=== PATIENT | female | born 1960 | race Hispanic/Latino ===

== ENCOUNTER 2024-12-07 20:32 | Emergency (ER) | payer BC ==
[~2024-12-07] VITALS: Ht 154.9 cm; Wt 75.7 kg
--- NOTE | 2024-12-07 21:15 | ERN ---
ED Note History of Present Illness Stated Complaint: SWOLLEN AND NUMBNESS IN CHEEK AND FACE Chief Complaint: Cellulitis Time Seen by MD: 20:24 Dictation: This is a 64-year-old female who presented to the emergency room with complaints of left-sided cheek swelling and jaw pain. She also reported tingling that has been going on for the past week or so apparently she saw her PCP who suspected that possible tooth infection could be causing these symptoms and it was given antibiotics however the patient stated that she has severe jaw pain and hence she came into the ER for further evaluation. She denied any fever chills or rigors. She gives a history of tooth being broken in the past in the same area. No difficulty opening the mouth or swallowing. No change in voice. No shortness of breath. She reports pain in the left lower jaw and teeth with radiation to the left ear and down the neck. Temperature 98 pulse 97 respirations 19 blood pressure 169/94 pulse oximetry 98% on room air Chronic medical problems include diabetes mellitus, hypertension, hyperlipidemia, kidney cancer in remission for the past 7 years Allergies: Coded Allergies: No Known Allergies (Unverified Allergy, Unknown, 12/07/24) Home Meds Active Scripts Acetaminophen with Codeine (Acetaminophen-Cod #3 Tablet) 300 Mg-30 Mg Tablet, 1 TAB PO TIDP PRN for pain for 5 Days, #15 TAB 0 Refills Prov:MICHAEL REEVES MD 12/07/24 Amoxicillin/Potassium Clav (Amox Tr-K Clv 875-125 mg Tab) 875 Mg-125 Mg Tablet, 1 TAB PO BID for 10 Days, #20 TAB 0 Refills Prov:MICHAEL REEVES MD 12/07/24 Past Medical History Past Medical History: Diabetes-Type II, High Cholesterol, Hypertension Surgical History: None Family History: Negative Social History: Negative History: Not Applicable RN Note Reviewed/Agreed w/PFSH: Yes Review of System Dictation Constitutional: Negative for fever,chills, and weight loss Eyes: Negative for injury, pain,redness, and discharge ENT: Positive for pain or swelling left facial swelling mostly in the lower jaw area she also reported some tingling of the lips. Cardiovascular: Negative for chest pain, palpitations, and edema Respiratory: Negative for shortness of breath, cough, and wheezing, Abdomen/GI: Negative for abdominal pain, nausea, vomiting, diarrhea, and constipation Back: Negative for injury and pain : Negative for injury, bleeding and discharge MS/Extremity: Negative for injury and deformity Skin: Negative for rash, and discoloration Neuro: Negative for headache, weakness, numbness, tingling, and seizure Psych: Negative for suicide ideation, homicidal ideation, and hallucinations Initial Vital Sign VS Vital Signs Date Time Temp Pulse Resp B/P (MAP) Pulse Ox O2 Delivery O2 Flow Rate FiO2 12/07/24 20:46 98.2 97 19 169/94 98 Room Air Physical Exam Dictation General: awake, alert, NAD Head/Face: Normocephalic, atraumatic Eyes: PERRL, EOMI, vision at baseline ENT: oral cavity clear, TMs clear, no signs of infection no trismus noted. Nonspecific swelling in the left jaw and left submandibular area. There is minimal swelling of the left lower cheek area there is no fluctuance or induration. Left lower jaw had missing teeth and the premolar is broken with a large cavity no obvious pus or any drainage on finger palpation of the gums. Neck: Trachea midline, supple, no nuchal rigidity Cardiovascular: RRR, normal S1/S2, No MRGs, no JVD Respiratory: CTAB, no respiratory distress, No rales or wheezes Abdomen: Soft, non-tender, non-distended, normal bowel sounds, no guarding or rebound. Skin: Warm, dry, normal turgor, no rash MS/Extremity: Pulses equal, no cyanosis, neurovascular intact, FROM Neuro: COAx4, GCS 15, strength 5/5, CN 2-12 intact, normal cerebellar exam, normal gait, Psych: Normal behavior, mood, and affect normal Extremities-trace edema without any palpable cords, Homans sign is negative Results (Laboratory/Radiology) Laboratory/Radiology Laboratory Tests Test 12/07/24 21:26 White Blood Count 10.9 K/uL (4.8-10.8) H Red Blood Count 5.08 MIL/uL (4.00-5.50) Hemoglobin 14.4 g/dL (12.0-16.0) Hematocrit 43.1 % (36-48) Mean Corpuscular Volume 84.8 fL (79-99) Mean Corpuscular Hemoglobin 28.3 pg (27.0-33.0) Mean Corpuscular Hemoglobin Concent 33.4 g/dL (32.0-36.0) Red Cell Distribution Width 13.4 % (11.0-15.5) Platelet Count 326 K/uL (130-400) Mean Platelet Volume 9.8 fL (7.5-10.5) Immature Granulocyte % (Auto) 0.4 % (0-1) Neutrophils (%) (Auto) 64.9 % (40.0-77.0) Lymphocytes (%) (Auto) 25.9 % (21.0-51.0) Monocytes (%) (Auto) 6.8 % (3.0-13.0) Eosinophils (%) (Auto) 1.6 % (0.0-8.0) Basophils (%) (Auto) 0.4 % (0.0-5.0) Neutrophils # (Auto) 7.1 K/uL (1.8-7.7) Lymphocytes # (Auto) 2.8 K/uL (1.0-4.8) Monocytes # (Auto) 0.7 K/uL (0.1-1.0) Eosinophils # (Auto) 0.17 K/uL (0.00-0.70) Basophils # (Auto) 0.04 K/uL (0.00-0.20) Absolute Immature Granulocyte (auto 0.04 K/uL (0-1) Nucleated Red Blood Cells 0.0 % (0.0-0.19) Sodium Level 139 mmol/L (136-145) Potassium Level 3.1 mmol/L (3.5-5.1) L Chloride Level 103 mmol/L (101-111) Carbon Dioxide Level 28 mmol/L (21-32) Blood Urea Nitrogen 15 mg/dL (7-18) Creatinine 0.8 mg/dL (0.5-1.0) Glomerular Filtration Rate Calc 83 mL/min (>90) Random Glucose 251 mg/dL (70-105) H Total Calcium 9.1 mg/dL (8.5-10.1) Labs Reviewed?: Yes CT Scan Comment: REASON: Left facial cellulitis and severe pain and swelling of the jaw and submand ORDERING PHYSICIAN: MICHAEL REEVES MD PROCEDURE: MAXFACI WO - CT MAXILLOFACIAL W/O CONTRAST CT MAXILLOFACIAL W/O CONTRAST HISTORY: Left facial cellulitis and severe pain and swelling of the jaw and submand TECHNIQUE: Noncontrast CT maxillofacial was performed. Sagittal and coronal reformats were performed. CT was performed with one or more of the following dose reduction techniques: Automated exposure control, adjustment of the mA and/or kV according to the patient's size, or use of the iterative reconstruction technique. FINDINGS: Left facial soft tissue swelling is seen. Evaluation of the oral cavity is degraded due to streak artifact from dental work. No soft tissue gas or drainable fluid collection is identified. Carious left mandibular premolar with periapical abscess, probably source of infection. Visualized paranasal sinuses are normally aerated. Mastoid air cells are clear. Study is not adequate to evaluate brain parenchyma/dura. IMPRESSION: 1. Left facial soft tissue swelling is seen. Evaluation of the oral cavity is degraded due to streak artifact from dental work. No soft tissue gas or drainable fluid collection is identified. 2. Carious left mandibular premolar tooth with periapical abscess, probably source of infection. DICTATED BY: PAT LARIOS MD DATE: 12/07/242207 ELECTRONICALLY SIGNED BY: PAT LARIOS MD DATE: 12/07/242212 ED Course ED Course Orders Procedure Category Date Status Time Cbc With Differential LAB 12/07/24 Complete 21:11 Basic Metabolic Panel LAB 12/07/24 Complete 21:11 Ketorolac PHA 12/07/24 Complete Tromethamine 30mg/Ml 21:30 0.9%Nacl 1000ml (Ns PHA 12/07/24 In Process 1000ml) 21:30 Ct Maxillofacial W/O CT 12/07/24 Resulted Contrast 21:23 Potassium Bicarb/Cit PHA 12/07/24 Complete Ac 25meq (K-Lyte Ta 22:30 Current Medications Medications (Trade) Dose Ordered Sig/Kirstin Route PRN Reason Start Time Stop Time Status Last Admin Dose Admin Ketorolac Tromethamine (toRADol) 30 mg ONCE ONCE IVP 12/07/24 21:30 12/07/24 21:31 DC 12/07/24 21:40 Potassium Bicarbonate (K-Lyte Tablet Eff 25 Meq Tablet.eff) 50 meq ONCE ONCE PO 12/07/24 22:30 12/07/24 22:31 DC 12/07/24 22:42 Sodium Chloride 1,000 ml @ 125 mls/hr ONCE ONCE IV 12/07/24 21:30 12/08/24 05:29 12/07/24 21:40 Vital Signs Date Time Temp Pulse Resp B/P (MAP) Pulse Ox O2 Delivery O2 Flow Rate FiO2 12/07/24 20:46 98.2 97 19 169/94 98 Room Air We will perform diagnostic labs, advanced imaging and administer medications according to the patient's complaint. Once the results are available, will review and personally interpreted the labs to rule out any acute life- threatening emergency the trach require immediate intervention and treatment. I will then re-evaluate the patient after treatment and diagnostic exams have return to determine whether the patient requires any further testing, can safely be discharged home or need further admission to hospital for additional treatment and evaluation. CBC showed a white count of 10.9. BNP 7 showed a potassium of 3.1 and sugar was 251 I updated the patient and her on the labs and CT scan of the maxillofacial section and explained the findings. I have educated them that there is no evidence of any drainable fluid or abscess other than swelling of the left facial area and periapical abscess of the premolar tooth in the left lower jaw. Extensive counseling on opioid use, abuse and adverse effects of the medication, risks and benefits. Patient and spouse verbalized full understanding and she is instructed not to drive as the opioid could make her drowsy. She was instructed to hold off on any other antibiotics while she is on Augmentin prescribed in the emergency room here I have answered all their questions and she should follow up with her PCP and oral surgeon Medical Decision Making MDM MDM: Differential diagnosis: Periodontitis, periapical abscess, dental caries, cellulitis or abscess of the left facial area, submandibular gland infection Rationale: Tests considered and ordered secondary to shared decision making include: Previous outside records reviewed: Old ER visits. Risk of complication and/or morbidity or mortality of patient management: None Medications-Per medication reconciliation Need for hospitalization: Patient does not meet criteria for hospitalization. Need for emergency major/minor surgery: No There are no social concerns with this patient. Prescription drug management Prescriptions will include symptomatic care Patient's prior external medical records from other ER visits were reviewed by me as indicated. Prior testing and results from previous visits were reviewed. Prior tests were taken into account with medical decision making and resource utilization, independent historian/historians were used to obtain complete medical history. I independently interpreted the test that were performed, results were reviewed by me and considered findings on radiology if ordered. Medical management and examination interpretation discussions were had by me with other qualified healthcare professionals as indicated for the patient's care. Problem List Problem List: (1) Periapical abscess with facial involvement (2) Facial cellulitis (3) Dental caries DX & DISP Disposition: Discharge Departure Impression: Primary Impression: Periapical abscess with facial involvement Additional Impressions: Facial cellulitis, Dental caries Condition: Stable Scripts Acetaminophen with Codeine (Acetaminophen-Cod #3 Tablet) 300 Mg-30 Mg Tablet 1 TAB PO TIDP PRN for pain for 5 Days, #15 TAB 0 Refills Prov: MICHAEL REEVES MD 12/07/24 Amoxicillin/Potassium Clav (Amox Tr-K Clv 875-125 mg Tab) 875 Mg-125 Mg Tablet 1 TAB PO BID for 10 Days, #20 TAB 0 Refills Prov: MICHAEL REEVES MD 12/07/24 Additional Instructions: Patient and the caregiver have been informed of all the diagnostic tests and the imaging conducted during the today's visit to the emergency room and has verbalized understanding of the results I have personally reviewed and interpreted all diagnostic exams performed here in the ER today as well as the vital signs documented by the nursing staff. The patient is now being discharged to home and should follow up with the primary care physician or the specialist as directed by the ER staff. Follow-up with primary care provider in 1 to 2 days. Take medications as directed here in the emergency room. Okay to continue home medications unless otherwise discussed during your visit in the emergency room today. Return to your nearest emergency room if symptoms worsen or if there is no improvement. Call 911 if you need immediate assistance. Take Tylenol or Motrin [id number] as needed and if no contraindications are present. Increase oral hydration. A wound culture or urine culture was ordered here in the emergency room department please follow-up with primary care provider and advise them to get repeat ports from our facility. If you had any Daniel wrap/splints that were applied here, please do not remove them until you see your primary care or specialty. Patient must follow up with her PCP and oral surgeon for further management MICHAEL REEVES MD December 07, 2024 21:15
[2024-12-07] MEDS: ketOROlac 30MG VIAL (30MG/ML) IVP ONE (21:40)
[2024-12-07] MEDS: 0.9%NACL 1000ML 1,000 ML IV ONE (21:40)
[2024-12-07 21:46] LABS: BASOPHILS # (AUTO) 0.04 K/uL (0.00-0.20); BASOPHILS % (AUTO) 0.4 % (0.0-5.0); EOSINOPHILS # (AUTO) 0.17 K/uL (0.00-0.70); EOSINOPHILS % (AUTO) 1.6 % (0.0-8.0); HEMATOCRIT 43.1 % (36-48); IMMATURE GRANULOCYTE ABSOLUTE 0.04 K/uL (0-1); LYMPHOCYTES # (AUTO) 2.8 K/uL (1.0-4.8); LYMPHOCYTES % (AUTO) 25.9 % (21.0-51.0); MEAN CORPUSCULAR HEMOGLOBIN 28.3 pg (27.0-33.0); MEAN CORPUSCULAR HGB CONC 33.4 g/dL (32.0-36.0); MEAN CORPUSCULAR VOLUME 84.8 fL (79-99); MONOCYTES # (AUTO) 0.7 K/uL (0.1-1.0); MONOCYTES % (AUTO) 6.8 % (3.0-13.0); NEUTROPHILS # (AUTO) 7.1 K/uL (1.8-7.7); NEUTROPHILS % (AUTO) 64.9 % (40.0-77.0); PLATELET COUNT (AUTO) 326 K/uL (130-400); RED BLOOD CELL COUNT(AUTO) 5.08 MIL/uL (4.00-5.50); RED CELL DISTRIBUTION WIDTH 13.4 % (11.0-15.5); WHITE BLOOD COUNT (AUTO) 10.9 K/uL (4.8-10.8)
[2024-12-07 21:57] LABS: CREATININE 0.8 mg/dL (0.5-1.0); POTASSIUM 3.1 mmol/L (3.5-5.1)
--- NOTE | 2024-12-07 22:12 | HMCIMG ---
CT MAXILLOFACIAL W/O CONTRAST HISTORY: Left facial cellulitis and severe pain and swelling of the jaw and submand TECHNIQUE: Noncontrast CT maxillofacial was performed. Sagittal and coronal reformats were performed. CT was performed with one or more of the following dose reduction techniques: Automated exposure control, adjustment of the mA and/or kV according to the patient's size, or use of the iterative reconstruction technique. FINDINGS: Left facial soft tissue swelling is seen. Evaluation of the oral cavity is degraded due to streak artifact from dental work. No soft tissue gas or drainable fluid collection is identified. Carious left mandibular premolar with periapical abscess, probably source of infection. Visualized paranasal sinuses are normally aerated. Mastoid air cells are clear. Study is not adequate to evaluate brain parenchyma/dura. IMPRESSION: 1. Left facial soft tissue swelling is seen. Evaluation of the oral cavity is degraded due to streak artifact from dental work. No soft tissue gas or drainable fluid collection is identified. 2. Carious left mandibular premolar tooth with periapical abscess, probably source of infection.
[2024-12-07] MEDS: PoTASSium BIcarbonate/CIT AC 25 MEQ TABLET.EFF PO ONE (22:42)
[2024-12-07] MEDS ORDERED: ACET-2079 PO (22:52)
[2024-12-07] MEDS ORDERED: AMOX1TAB16 PO (22:52)
[2024-12-07] MEDS: acetaMINOPHEN WITH coDEINE 1 TAB TAB PO ONE (23:58)
[2024-12-08 00:41] VITALS: BP 128/67; PULSE 80; RESP 20; TEMP 98.3
== END 2024-12-08 00:15 | disposition home or self-care (01) ==
LOC: EDH 20:32
DX: K04.7 Periapical abscess without sinus (principal); L03.211 Cellulitis of face; I10 Essential (primary) hypertension; E78.00 Pure hypercholesterolemia, unspecified; E11.9 Type 2 diabetes mellitus without complications
CPT/HCPCS: 99284; 96374; 70486; 96361; 80048; 85025; 36415; J1885; J7030

== ENCOUNTER 2025-05-30 19:22 | Emergency (ER) | payer BC ==
[~2025-05-30] VITALS: Ht 154.9 cm; Wt 79.4 kg
[~2025-05-30 19:22] MED LIST: ACET-2079 PO; AMOX1TAB16 PO
--- NOTE | 2025-05-30 19:27 | NUR ---
UA CUP PROVIDED
--- NOTE | 2025-05-30 19:29 | ERN ---
ED Note History of Present Illness Stated Complaint: CP, ABD PAIN Chief Complaint: Multiple Complaints Time Seen by MD: 19:23 Time Seen by Midlevel: 19:25 Dictation: 65 old female with a history of hypertension, diabetes, cholesterol coming in with complaints of chest pain and diarrhea. Patient states she had some potatoes with a he does an hour later she began with chest pain and then the diarrhea. Patient states there is no melena or bloody stools. Patient states she feels pressure in her chest. Denies any shortness a breath, nausea, vomiting, back pain or jaw pain. Allergies: Coded Allergies: No Known Allergies (Unverified Allergy, Unknown, 12/07/24) Home Meds Active Scripts Acetaminophen with Codeine (Acetaminophen-Cod #3 Tablet) 300 Mg-30 Mg Tablet, 1 TAB PO TIDP PRN for pain for 5 Days, #15 TAB 0 Refills Prov:MICHAEL REEVES MD 12/07/24 Amoxicillin/Potassium Clav (Amox Tr-K Clv 875-125 mg Tab) 875 Mg-125 Mg Tablet, 1 TAB PO BID for 10 Days, #20 TAB 0 Refills Prov:MICHAEL REEVES MD 12/07/24 Past Medical History Past Medical History: Diabetes-Type II, High Cholesterol, Hypertension Surgical History: None Family History: Negative Social History: Negative History: Not Applicable Review of System Dictation Constitutional: Negative for fever,chills, and weight loss Eyes: Negative for injury, pain,redness, and discharge ENT: Negative for injury,pain or swelling Cardiovascular:Chest pain Respiratory: Negative for shortness of breath, cough, and wheezing, Abdomen/GI: Diarrhea Back: Negative for injury and pain : Negative for injury, bleeding and discharge MS/Extremity: Negative for injury and deformity Skin: Negative for rash, and discoloration Neuro: Negative for headache, weakness, numbness, tingling, and seizure Psych: Negative for suicide ideation, homicidal ideation, and hallucinations Review of Systems: was completed Initial Vital Sign VS Vital Signs Date Time Temp Pulse Resp B/P (MAP) Pulse Ox O2 Delivery O2 Flow Rate FiO2 05/30/25 19:23 98.1 79 18 138/78 99 Room Air Physical Exam Dictation General: awake, alert, NAD Head/Face: Normocephalic, atraumatic Eyes: PERRL, EOMI, vision at baseline ENT: oral cavity clear, TMs clear, no signs of infection Neck: Trachea midline, supple, no nuchal rigidity Cardiovascular: RRR, normal S1/S2, No MRGs, no JVD, chest pain is reproducible upon palpation to the center sternum Respiratory: CTAB, no respiratory distress, No rales or wheezes Abdomen: Soft, non-tender, non-distended, normal bowel sounds, no guarding or rebound. Skin: Warm, dry, normal turgor, no rash MS/Extremity: Pulses equal, no cyanosis, neurovascular intact, FROM Neuro: COAx4, GCS 15, strength 5/5, CN 2-12 intact, normal cerebellar exam, normal gait, Psych: Normal behavior, mood, and affect normal Results (Laboratory/Radiology) Laboratory/Radiology Laboratory Tests Test 05/30/25 19:38 05/30/25 19:47 Urine Color LIGHT-YELLOW (YELLOW) Urine Appearance CLEAR (CLEAR) Urine pH 5.0 (5.0-8.0) Urine Specific [place] 1.037 (1.001-1.031) Urine Protein NEGATIVE mg/dL (NEGATIVE) Urine Glucose (UA) >=1000 mg/dL (NEGATIVE) H Urine Ketones 40 mg/dL (NEGATIVE) H Urine Occult Blood NEGATIVE (NEGATIVE) Urine Nitrate NEGATIVE (NEGATIVE) Urine Bilirubin NEGATIVE mg/dL (NEGATIVE) Urine Urobilinogen 0.2 mg/dL (0.2-1.0) Urine Leukocyte Esterase 250 Bean/uL (NEGATIVE) H Urine RBC 0-1 /HPF (0-1) Urine WBC 26-50 /HPF (0-1) H Urine Squamous Epithelial Cells FEW /HPF (0-2) Urine Bacteria FEW /HPF (None Seen) White Blood Count 21.7 K/uL (4.8-10.8) H Red Blood Count 5.26 MIL/uL (4.00-5.50) Hemoglobin 15.0 g/dL (12.0-16.0) Hematocrit 45.4 % (36-48) Mean Corpuscular Volume 86.3 fL (79-99) Mean Corpuscular Hemoglobin 28.5 pg (27.0-33.0) Mean Corpuscular Hemoglobin Concent 33.0 g/dL (32.0-36.0) Red Cell Distribution Width 13.2 % (11.0-15.5) Platelet Count 313 K/uL (130-400) Mean Platelet Volume 10.0 fL (7.5-10.5) Immature Granulocyte % (Auto) 0.5 % (0-1) Neutrophils (%) (Auto) 85.7 % (40.0-77.0) H Lymphocytes (%) (Auto) 9.2 % (21.0-51.0) L Monocytes (%) (Auto) 4.0 % (3.0-13.0) Eosinophils (%) (Auto) 0.3 % (0.0-8.0) Basophils (%) (Auto) 0.3 % (0.0-5.0) Neutrophils # (Auto) 18.6 K/uL (1.8-7.7) H Lymphocytes # (Auto) 2.0 K/uL (1.0-4.8) Monocytes # (Auto) 0.9 K/uL (0.1-1.0) Eosinophils # (Auto) 0.06 K/uL (0.00-0.70) Basophils # (Auto) 0.06 K/uL (0.00-0.20) Absolute Immature Granulocyte (auto 0.10 K/uL (0-1) Segmented Neutrophils % 66 % (40-70) Band Neutrophils % 18 % (0-2) H Lymphocytes % (Manual) 15 % (22-44) L Monocytes % (Manual) 1 % (2-9) L Nucleated Red Blood Cells 0.0 % (0.0-0.19) Differential Comment MANUAL DIFFERENTIAL White Cell Morphology Comment CONSISTENT W/DIFF Platelet Morphology Comment ADEQUATE Red Blood Cell Morphology NORMAL Sodium Level 141 mmol/L (136-145) Potassium Level 3.7 mmol/L (3.5-5.1) Chloride Level 103 mmol/L (101-111) Carbon Dioxide Level 27 mmol/L (21-32) Blood Urea Nitrogen 19 mg/dL (7-18) H Creatinine 0.7 mg/dL (0.5-1.0) Glomerular Filtration Rate Calc 97 mL/min (>90) Random Glucose 187 mg/dL (70-105) H Total Calcium 9.1 mg/dL (8.5-10.1) Total Creatine Kinase 137 U/L (21-232) Troponin I High Sensitivity 32 ng/L (4-50) Lipase 31 U/L (16-77) Labs Reviewed?: Yes X-RAY Comment: [facility] [address] [place] [id number] IMAGING REPORT Signed PATIENT: RAJI KING MR#: [id number] : 1960 SEX: F AGE: 65 LOCATION: [facility] ORDER 26 STATUS: REG ER REPORT#: [id number] SERVICE 25 REASON: CHEST PAIN ORDERING PHYSICIAN: MANUEL WATERS MD PROCEDURE: CXR1VW - CHEST 1VW EXAM: CR Chest, 1 view CLINICAL HISTORY: Chest pain. COMPARISON: None provided. FINDINGS: The lungs show no infiltrates or other acute findings. No pleural effusion or pneumothorax. The cardiomediastinal silhouette is within normal limits. No acute osseous abnormality. IMPRESSION: No acute cardiopulmonary process is evident. /[place] DICTATED BY: MULU CARVAJAL Jr., MD DATE: 05/30/252147 ELECTRONICALLY SIGNED BY: MULU CARVAJAL Jr., MD DATE: 05/30/252147 CT Scan Comment: [facility] [address] [place] [id number] IMAGING REPORT Signed PATIENT: RAJI KING MR#: [id number] : 1960 SEX: F AGE: 65 LOCATION: [facility] ORDER 07 STATUS: REG ER REPORT#: [id number] SERVICE 06 REASON: abdominal lock, vomiting, diarrhea, leukocytois ORDERING PHYSICIAN: VENU BENAVIDES CNP PROCEDURE: ABD PEL W - CT ABDOMEN/PELVIS W/CONTRAST EXAM: CT Abdomen and Pelvis with IV contrast CLINICAL HISTORY: Abdominal pain, vomiting, diarrhea, leukocytosis TECHNIQUE: Axial computed tomography images of the abdomen and pelvis with intravenous contrast. COMPARISON: None provided. FINDINGS: LUNG BASES: The lung bases appear clear. No pleural effusions are seen. LIVER: Enlarged in size, measuring 17.5 cm. GALLBLADDER AND BILE DUCTS: Post cholecystectomy status. No biliary ductal dilatation is evident. PANCREAS: Unremarkable. SPLEEN: Unremarkable. ADRENAL GLANDS: Unremarkable. KIDNEYS, URETERS, AND BLADDER: Cortical cyst in the interpolar region of the left kidney measuring 1.6 x 1.6 cm. There is no hydronephrosis or hydroureter. No urinary calculi are seen. STOMACH AND BOWEL: Nondilated fluid-filled small and large bowel loops without any zone of transition; this could be a nonspecific finding, or may be present in the clinical setting of acute enterocolitis. Uncomplicated colonic diverticula. No bowel obstruction. APPENDIX: Appendix appears prominent, measuring 8 mm in caliber with no evidence of significant periappendiceal fat stranding. PERITONEUM: No free fluid. No free air. LYMPH NODES: No lymphadenopathy is evident. REPRODUCTIVE: Status post hysterectomy. VASCULATURE: No evidence of abdominal aortic aneurysm. BONES: No aggressive appearing osseous lesion. No acute osseous pathology evident. Surgical nerissa in the left perinephric region. Consistent with postoperative status. Suggested clinical correlation. IMPRESSION: Nondilated fluid-filled small and large bowel loops without any zone of transition; this could be a nonspecific finding, or may be present in the clinical setting of acute enterocolitis. Uncomplicated colonic diverticula. No bowel obstruction. Prominent appendix with no evidence of significant periappendiceal fat stranding or inflammation at this time, recommend close observation. Left renal cortical cyst. Bosniak category I. /[place] DICTATED BY: MULU CARVAJAL Jr., MD DATE: 05/30/252235 ELECTRONICALLY SIGNED BY: MULU CARVAJAL Jr., MD DATE: 05/30/252235 ED Course ED Course Orders Procedure Category Date Status Time Vital Signs Per CPOE 05/30/25 Transmitted Routine 19:26 Chest 1vw RAD 05/30/25 Resulted 19:26 12 Lead Ekg Tracing- EKG 05/30/25 Complete Technical 19:26 Oxygen By Nc/Pulse Ox CPOE 05/30/25 Transmitted 19:26 Maintain Iv CPOE 05/30/25 Transmitted 19:26 Iv Insertion CPOE 05/30/25 Transmitted 19:26 Cardiac Monitoring CPOE 05/30/25 Transmitted 19:26 Pulse Oximetry With CPOE 05/30/25 Transmitted Vs And Prn 19:26 Cbc With Differential LAB 05/30/25 Complete 19:26 Activity: Br W/Brp CPOE 05/30/25 Transmitted With Assist 19:26 Creatine Kinase, Total LAB 05/30/25 Complete 19:26 Troponin I High LAB 05/30/25 Complete Sensitivity 19:26 Urinalysis Profile LAB 05/30/25 Complete 19:26 Basic Metabolic Panel LAB 05/30/25 Complete 19:26 Famotidine 20mg Vial PHA 05/30/25 In Process (Pepcid 20mg Vial) 19:30 Aspirin 81mg Chew Tab PHA 05/30/25 In Process (Aspirin 81mg Chew 19:30 Nitroglycerin 0.4mg PHA 05/30/25 In Process Sl Tab (Nitrostat) 19:30 Lipase LAB 05/30/25 Complete 19:47 Culture Urine ALEXANDRA 05/30/25 In Process 20:02 Ct Abdomen/Pelvis CT 05/30/25 Resulted W/Contrast 20:07 Ondansetron 4mg Inj PHA 05/30/25 In Process (Zofran 4mg Inj) 20:30 Manual Differential LAB 05/30/25 Complete 19:47 Iohexol (Omnipaque) PHA 05/30/25 Complete 20:24 Current Medications Medications (Trade) Dose Ordered Sig/Kirstin Route PRN Reason Start Time Stop Time Status Last Admin Dose Admin Aspirin (Aspirin 81mg Chew Tab) 324 mg ONCE PO 05/30/25 19:30 05/30/25 23:30 05/30/25 20:01 Famotidine (Pepcid 20mg Vial) 20 mg ONCE IV 05/30/25 19:30 05/30/25 23:30 05/30/25 20:01 Iohexol (Omnipaque) 75 ml STK-MED ONCE IV 05/30/25 20:24 05/30/25 20:24 DC Nitroglycerin (Nitrostat) 0.4 mg AD PRN SL CHEST PAIN 05/30/25 19:30 06/29/25 19:29 Ondansetron HCl (zoFRAN 4MG INJ) 4 mg ONCE IVP 05/30/25 20:30 05/30/25 23:59 05/30/25 20:48 Vital Signs Date Time Temp Pulse Resp B/P (MAP) Pulse Ox O2 Delivery O2 Flow Rate FiO2 05/30/25 19:23 98.1 79 18 138/78 99 Room Air Medical Decision Making MDM MDM: 65 old female with a history of hypertension, diabetes, cholesterol coming in with complaints of chest pain and diarrhea. Patient states she had some potatoes with a he does an hour later she began with chest pain and then the diarrhea. Patient states there is no melena or bloody stools. Patient states she feels pressure in her chest. Denies any shortness a breath, nausea, vomiting, back pain or jaw pain.Leukocytosis of 21 could be related to vomiting and diarrhea. No anemia. No thrombocytopenia. Chemistry shows no electrolyte abnormality. Normal kidney function. Troponin is negative. Lipase within normal range. CT scan of the abdomen and pelvis with contrast shows nondilated fluid-filled small and large bowel loops without any zone of transition may represent acute enterocolitis. Normal appendix. Pancreas unremarkable. On reassessment after fluids and medication patient states she feels much better, vital signs stable. Discussed findings with the patient, educated to keep hydrated, started with a bland diet and increase food as tolerated. Educated to follow up with her PCP in 1-2 days it. . Educated to return to the hospital if any worsen symptoms. Patient verbalized understanding, answered all questions. Differential diagnosis: Gastroenteritis, pancreatitis, SBO Rationale: Tests considered and ordered secondary to shared decision making include: Previous outside records reviewed: Old ER visits. Risk of complication and/or morbidity or mortality of patient management: None Medications-Per medication reconciliation Need for hospitalization: Patient does not meet criteria for hospitalization. Need for emergency major/minor surgery: No There are no social concerns with this patient. Prescription drug management Prescriptions will include symptomatic care Patient's prior external medical records from other ER visits were reviewed by me as indicated. Prior testing and results from previous visits were reviewed. Prior tests were taken into account with medical decision making and resource utilization, independent historian/historians were used to obtain complete medical history. I independently interpreted the test that were performed, results were reviewed by me and considered findings on radiology if ordered. Medical management and examination interpretation discussions were had by me with other qualified healthcare professionals as indicated for the patient's care. DX & DISP Disposition: Discharge Departure Impression: Primary Impression: Enterocolitis Condition: Stable Scripts Famotidine (Pepcid) 20 Mg Tablet 1 TAB PO BID for 30 Days, #60 TAB 0 Refills Prov: VENU BENAVIDES CNP 05/30/25 Ondansetron (Ondansetron Odt) 4 Mg Tab.rapdis 4 MG PO Q6HPRN PRN for nausea, #16 TAB 0 Refills Prov: VENU BENAVIDES CNP 05/30/25 Metronidazole (Metronidazole) 500 Mg Tablet 1 TAB PO TID for 7 Days, #30 TAB 0 Refills Prov: VENU BENAVIDES CNP 05/30/25 Additional Instructions: Take medications as prescribed. Stay hydrated. Take probiotics. Follow up with your primary care doctor. Referrals: SELF,REFERRAL (PCP) Time of Disposition: 22:24 I have reviewed the case, and I agree with, Diagnosis and Plan VENU BENAVIDES CNP May 30, 2025 19:29
[2025-05-30] MEDS ORDERED: NITROGLYCERIN 0.4 MG SL TAB SL PRN (19:30)
--- NOTE | 2025-05-30 19:43 | NUR ---
PT CARE ASSUMED AT THIS TIME
[2025-05-30 19:54] LABS: IMMATURE GRANULOCYTE ABSOLUTE 0.10 K/uL (0-1); NUCLEATED RED BLOOD CELLS 0.0 % (0.0-0.19); PLATELET COUNT (AUTO) 313 K/uL (130-400); RED BLOOD CELL COUNT(AUTO) 5.26 MIL/uL (4.00-5.50); RED CELL DISTRIBUTION WIDTH 13.2 % (11.0-15.5); WHITE BLOOD COUNT (AUTO) 21.7 K/uL (4.8-10.8)
[2025-05-30 20:01] LABS: ADD UA MICROSCOPIC YES; APPEARANCE,URINE CLEAR (CLEAR); GLUCOSE, URINE (UA) >=1000 mg/dL (NEGATIVE); LEUKOCYTE ESTERASE ,URINE 250 Leu/uL (NEGATIVE); NITRATE,URINE NEGATIVE (NEGATIVE); OCCULT BLOOD,URINE NEGATIVE (NEGATIVE)
[2025-05-30] MEDS: ASPIRIN 81MG CHEW TAB PO SCH (20:01)
[2025-05-30] MEDS: FAMOTIDINE 20MG VIAL IV SCH (20:01)
[2025-05-30 20:03] LABS: CREATININE 0.7 mg/dL (0.5-1.0); GLOMERULAR FILTR. RATE CALC 97.0 mL/min (>90); GLUCOSE,RANDOM 187.0 mg/dL (70-105); SODIUM SERUM 141.0 mmol/L (136-145); UREA NITROGEN, BLOOD 19.0 mg/dL (7-18)
[2025-05-30 20:03] LABS: SQUAMOUS EPITHELIAL CELL,UR FEW /HPF (0-2)
[2025-05-30 20:12] LABS: CREATINE KINASE, TOTAL 137.0 U/L (21-232)
[2025-05-30 20:16] LABS: BAND NEUTROPHILS % (MANUAL) 18 % (0-2); LYMPHOCYTES % (MANUAL) 15 % (22-44); MAN.DIFF COMMENT-IMPRESSION MANUAL DIFFERENTIAL; MONOCYTES % (MANUAL) 1 % (2-9); PLATELET MORPHOLOGY COMMENT ADEQUATE; SEGMENTED NEUTROPHILS % 66 % (40-70); WBC MORPHOLOGY CONSISTENT W/DIFF
[2025-05-30] MEDS ORDERED: IOHEXOL-350 75 ML VIAL IV ONE (20:24)
--- NOTE | 2025-05-30 20:32 | NUR ---
PT TAKEN TO CT AT THIS TIME
--- NOTE | 2025-05-30 20:48 | HMCIMG ---
EXAM: CR Chest, 1 view CLINICAL HISTORY: Chest pain. COMPARISON: None provided. FINDINGS: The lungs show no infiltrates or other acute findings. No pleural effusion or pneumothorax. The cardiomediastinal silhouette is within normal limits. No acute osseous abnormality. IMPRESSION: No acute cardiopulmonary process is evident. /[place]
--- NOTE | 2025-05-30 20:48 | NUR ---
PTT BACK FROM CT, PT SHOWS NO SIGNS OF DISTRESS. EVEN AND UNLABORED BREATHING NOTED.
--- NOTE | 2025-05-30 21:32 | EKG ---
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
--- NOTE | 2025-05-30 21:37 | HMCIMG ---
EXAM: CT Abdomen and Pelvis with IV contrast CLINICAL HISTORY: Abdominal pain, vomiting, diarrhea, leukocytosis TECHNIQUE: Axial computed tomography images of the abdomen and pelvis with intravenous contrast. COMPARISON: None provided. FINDINGS: LUNG BASES: The lung bases appear clear. No pleural effusions are seen. LIVER: Enlarged in size, measuring 17.5 cm. GALLBLADDER AND BILE DUCTS: Post cholecystectomy status. No biliary ductal dilatation is evident. PANCREAS: Unremarkable. SPLEEN: Unremarkable. ADRENAL GLANDS: Unremarkable. KIDNEYS, URETERS, AND BLADDER: Cortical cyst in the interpolar region of the left kidney measuring 1.6 x 1.6 cm. There is no hydronephrosis or hydroureter. No urinary calculi are seen. STOMACH AND BOWEL: Nondilated fluid-filled small and large bowel loops without any zone of transition; this could be a nonspecific finding, or may be present in the clinical setting of acute enterocolitis. Uncomplicated colonic diverticula. No bowel obstruction. APPENDIX: Appendix appears prominent, measuring 8 mm in caliber with no evidence of significant periappendiceal fat stranding. PERITONEUM: No free fluid. No free air. LYMPH NODES: No lymphadenopathy is evident. REPRODUCTIVE: Status post hysterectomy. VASCULATURE: No evidence of abdominal aortic aneurysm. BONES: No aggressive appearing osseous lesion. No acute osseous pathology evident. Surgical nerissa in the left perinephric region. Consistent with postoperative status. Suggested clinical correlation. IMPRESSION: Nondilated fluid-filled small and large bowel loops without any zone of transition; this could be a nonspecific finding, or may be present in the clinical setting of acute enterocolitis. Uncomplicated colonic diverticula. No bowel obstruction. Prominent appendix with no evidence of significant periappendiceal fat stranding or inflammation at this time, recommend close observation. Left renal cortical cyst. Bosniak category I. /[place]
[2025-05-30] MEDS ORDERED: ONDA-243 PO (22:24)
[2025-05-30] MEDS ORDERED: METR-172 PO (22:24)
[2025-05-30] MEDS ORDERED: FAMO-136 PO (22:24)
[2025-05-30 22:36] VITALS: BP 122/70; PULSE 85; RESP 17; TEMP 98.1; O2SAT 98
== END 2025-05-30 22:40 | disposition home or self-care (01) ==
LOC: EDH 19:22
DX: K52.9 Noninfective gastroenteritis and colitis, unspecified (principal); E11.9 Type 2 diabetes mellitus without complications; E78.00 Pure hypercholesterolemia, unspecified; I10 Essential (primary) hypertension
CPT/HCPCS: 99284; 74177; 96374; 71045; 96375; 82550; 84484; 80048; 83690; 85025; 87086; 81001; 36415; 93005; J1308; J2405; Q9967